=== PATIENT | male | born 1970 | race African-American/Black ===

== ENCOUNTER 2024-03-21 08:09 | Emergency (ER) | payer MEDICAID ==
[~2024-03-21] VITALS: Ht 170.2 cm; Wt 70.0 kg
[2024-03-21] MEDS: IBUPROFEN 600 MG TABLET PO ONE (12:28)
[2024-03-21 12:49] VITALS: BP 113/70; PULSE 74; RESP 18; TEMP 98.4; O2SAT 98
[2024-03-21] MEDS ORDERED: IBUP-1492 PO (12:55)
== END 2024-03-21 13:01 | disposition home or self-care (01) ==
LOC: EMS 08:09
DX: M25.511 Pain in right shoulder (principal); V43.52XA Car driver injured in collision with other type car in traffic accident, initial encounter; Y93.89 Activity, other specified; Y92.410 Unspecified street and highway as the place of occurrence of the external cause; Y99.8 Other external cause status
CPT/HCPCS: 71046; 99284